=== PATIENT | female | born 1995 | race Hispanic/Latino ===

== ENCOUNTER 2024-10-07 07:25 | Outpatient (CLI) | payer OTHER | END 2024-10-07 07:26 | disposition home or self-care (01) | LOC: ULT 07:25 | PROVIDERS: ATTEND Nurse Practitioner Family | DX: R10.11 Right upper quadrant pain (principal); R16.0 Hepatomegaly, not elsewhere classified | CPT/HCPCS: 76700 ==

== ENCOUNTER 2024-10-28 07:25 | Outpatient (CLI) | payer OTHER | END 2024-10-28 07:26 | disposition home or self-care (01) | LOC: MRI 07:25 | PROVIDERS: ATTEND Nurse Practitioner Family | DX: R93.5 Abnormal findings on diagnostic imaging of other abdominal regions, including retroperitoneum (principal); K76.0 Fatty (change of) liver, not elsewhere classified | CPT/HCPCS: 74183 ==